=== PATIENT | female | born 1950 | race Two or more races ===

== ENCOUNTER → 2019-02-24 | Outpatient (CLI) | payer OTHER, MEDICARE, MEDICAID ==
--- NOTE | 2019-02-24 13:03 | RADIOLOGY REPORT (SQ) ---
EXAM DESCRIPTION: CHEST PA/LATERAL COMPLETED DATE/TIME: 02/24/2019 11:41 am REASON FOR STUDY: WHEEZING COMPARISON: None. EXAM PARAMETERS: NUMBER OF VIEWS: two views TECHNIQUE: Digital Frontal and Lateral radiographic views of the chest acquired. RADIATION DOSE: NA LIMITATIONS: none FINDINGS: LUNGS AND PLEURA: No opacities, masses or pneumothorax. No pleural effusion. MEDIASTINUM AND HILAR STRUCTURES: No masses or contour abnormalities. HEART AND VASCULAR STRUCTURES: The heart size is borderline. There is no pulmonary edema. BONES: No acute findings. HARDWARE: None in the chest. OTHER: No other significant finding. IMPRESSION: Borderline cardiomegaly without pulmonary edema. TECHNICAL DOCUMENTATION: JOB ID: [id number] [employer]- All Rights Reserved Reading location - IP/workstation name: [email or web address]
== END ==
LOC: RAD 11:19
PROVIDERS: ATTEND Physician Assistant
DX: I51.7 Cardiomegaly (principal); R06.2 Wheezing
CPT/HCPCS: 71046

== ENCOUNTER → 2019-06-05 | Outpatient (CLI) | payer MEDICARE, MEDICAID ==
[2019-06-05 13:20] LABS: ABSOLUTE EOSINOPHILS # (AUTO) 0.2 10^3/uL (0.0-0.6); ABSOLUTE LYMPHOCYTES (AUTO) 1.9 10^3/uL (0.5-4.7); ABSOLUTE MONOCYTES (AUTO) 0.3 10^3/uL (0.1-1.4); ABSOLUTE NEUT (AUTO) 3.7 10^3/uL (1.7-8.2); BASOPHILS % (AUTO) 0.5 % (0-2); EOSINOPHILS % (AUTO) 3.5 % (0-6); HEMATOCRIT 37.9 % (36.0-47.0); HEMOGLOBIN 13.1 g/dL (12.0-15.5); LYMPHOCYTES % (AUTO) 31.3 % (13-45); MEAN CORPUSCULAR HEMOGLOBIN 29.1 pg (27.0-33.4); MEAN CORPUSCULAR HGB CONC 34.5 g/dL (32.0-36.0); MEAN CORPUSCULAR VOLUME 84 fl (80-97); MONOCYTES % (AUTO) 5.6 % (3-13); PLATELET COUNT 200 10^3/uL (150-450); RED BLOOD COUNT 4.49 10^6/uL (3.72-5.28); RED CELL DISTRIBUTION WIDTH 13.9 % (11.5-14.0); SEGMENTED NEUTROPHILS % (AUTO) 59.1 % (42-78); TOTAL CELLS COUNTED % (AUTO) 100 %; WHITE BLOOD COUNT 6.2 10^3/uL (4.0-10.5)
[2019-06-05 13:45] LABS: ALBUMIN 4.8 g/dL (3.5-5.0); ALKALINE PHOSPHATASE 57 U/L (38-126); ANION GAP 10 (5-19); ASPARTATE AMINO TRANSFERASE 24 U/L (14-36); BILIRUBIN,TOTAL 0.5 mg/dL (0.2-1.3); BLOOD UREA NITROGEN 41 mg/dL (7-20); CALCIUM 9.5 mg/dL (8.4-10.2); CARBON DIOXIDE 22 mmol/L (22-30); CHLORIDE 105 mmol/L (98-107); CHOLESTEROL 209.97 mg/dL (0-200); GLUCOSE 144 mg/dL (75-110); POTASSIUM 4.4 mmol/L (3.6-5.0); TOTAL PROTEIN 7.7 g/dL (6.3-8.2); TRIGLYCERIDES 511 mg/dL (<150)
[2019-06-05 13:56] LABS: DIRECT LDL 117 mg/dL (<100)
== END ==
LOC: OD 12:13
PROVIDERS: ATTEND Physician Assistant
DX: E11.9 Type 2 diabetes mellitus without complications (principal); E78.2 Mixed hyperlipidemia
CPT/HCPCS: 36415; 80053; 80061; 83036; 85025

== ENCOUNTER → 2019-10-14 | Outpatient (CLI) | payer MEDICARE, MEDICAID ==
--- NOTE | 2019-10-14 12:12 | RADIOLOGY REPORT (SQ) ---
EXAM DESCRIPTION: U/S RETROPERITON (RENAL/AORTA) IMAGES COMPLETED DATE/TIME: 10/14/2019 12:01 pm REASON FOR STUDY: CKD I (N18.1) N18.1 CHRONIC KIDNEY DISEASE, STAGE 1 COMPARISON: None. TECHNIQUE: Dynamic and static grayscale images acquired of the kidneys and bladder and recorded on P ACS. Additional selected color Doppler and spectral images recorded. LIMITATIONS: None. FINDINGS: RIGHT KIDNEY: The right kidney measures 8.8 cm in length. Normal echogenicity. No flaco id or suspicious masses. No hydronephrosis. No calcifications. LEFT KIDNEY: The left kidney measures 10.4 cm in length. Normal echogenicity. There is a 1.6 x 1 .8 x 1.2 cm cyst in the upper pole. There is mild dilatation of the left renal pelvis. Mild calyx dilatation. No calcifications. BLADDER: No masses. OTHER FINDINGS: No other significant finding. IMPRESSION: Mild left-sided hydronephrosis. TECHNICAL DOCUMENTATION: JOB ID: [id number] [employer]- All Rights Reserved Reading location - IP/workstation name: [email or web address]
== END ==
LOC: RAD 11:11
PROVIDERS: ATTEND Physician Assistant
DX: N18.1 Chronic kidney disease, stage 1 (principal); N13.30 Unspecified hydronephrosis
CPT/HCPCS: 76770

== ENCOUNTER 2020-02-28 13:41 | Emergency (ER) | payer MEDICARE, MEDICAID ==
--- NOTE | 2020-02-28 15:56 | ER Document Report ---
ED Medical Screen (RME) - General Chief Complaint: High Blood Sugar Stated Complaint: BLOOD SUGAR ISSUES Time Seen by Provider: 02/28/20 15:48 Primary Care Provider: SERGIO BARROS PA [Primary Care Provider] - Follow up as needed TRAVEL OUTSIDE OF THE [place] IN LAST 30 DAYS: No - HPI Notes: Patient is a 69-year-old female with medical history of insulin-dependent DM, renal insufficiency, and HTN who presents with hyperglycemia for the past 2 days. Patient states her most recent blood sugar was 414 this morning. Patient has been compliant with her medications and insulin. She reports fatigue, polyuria, polydipsia, and shakiness. She denies vomiting, and abdominal pain. Physical Exam - Vital signs Vitals: Temp Pulse Resp BP Pulse Ox 97.5 F 55 L 22 H 154/61 H 97 02/28/20 13:56 02/28/20 13:56 02/28/20 13:56 02/28/20 13:56 02/28/20 13:56 - Respiratory Respiratory status: No respiratory distress Breath sounds: Normal - Cardiovascular Rhythm: Regular Heart sounds: Normal auscultation - Abdominal Tenderness: Nontender Course - Re-evaluation Re-evalutation: I have greeted and performed a rapid initial assessment of this patient. A comprehensive ED assessment and evaluation of the patient, analysis of test results and completion of medical decision making process will be conducted by an additional ED providers. - Vital Signs Vital signs: Temp Pulse Resp BP Pulse Ox 97.5 F 55 L 22 H 154/61 H 97 02/28/20 13:56 02/28/20 13:56 02/28/20 13:56 02/28/20 13:56 02/28/20 13:56 Doctor's Discharge - Discharge Referrals: SERGIO BARROS PA [Primary Care Provider] - Follow up as needed
[2020-02-28 16:24] LABS: APPEARANCE,URINE CLEAR; BILIRUBIN,URINE NEGATIVE (NEGATIVE); COLOR,URINE YELLOW; GLUCOSE, URINE 50 mg/dL (NEGATIVE); KETONES,URINE NEGATIVE (NEGATIVE); LEUKOCYTE ESTERASE,URINE SMALL (NEGATIVE); NITRITE,URINE NEGATIVE (NEGATIVE); PROTEIN,URINE 30 mg/dL (NEGATIVE); URINE SPECIFIC GRAVITY 1.019; UROBILINOGEN,URINE NEGATIVE mg/dL (<2.0)
[2020-02-28 16:32] LABS: ABSOLUTE EOSINOPHILS # (AUTO) 0.1 10^3/uL (0.0-0.6); ABSOLUTE LYMPHOCYTES (AUTO) 1.5 10^3/uL (0.5-4.7); ABSOLUTE MONOCYTES (AUTO) 0.3 10^3/uL (0.1-1.4); BASOPHILS % (AUTO) 0.6 % (0-2); EOSINOPHILS % (AUTO) 1.5 % (0-6); HEMATOCRIT 38.7 % (36.0-47.0); HEMOGLOBIN 12.9 g/dL (12.0-15.5); LYMPHOCYTES % (AUTO) 24.8 % (13-45); MEAN CORPUSCULAR HEMOGLOBIN 25.1 pg (27.0-33.4); MEAN CORPUSCULAR HGB CONC 33.3 g/dL (32.0-36.0); MEAN CORPUSCULAR VOLUME 75 fl (80-97); MONOCYTES % (AUTO) 5.1 % (3-13); PLATELET COUNT 187 10^3/uL (150-450); RED BLOOD COUNT 5.14 10^6/uL (3.72-5.28); RED CELL DISTRIBUTION WIDTH 15.6 % (11.5-14.0); TOTAL CELLS COUNTED % (AUTO) 100 %; WHITE BLOOD COUNT 5.9 10^3/uL (4.0-10.5)
[2020-02-28 16:37] LABS: ALBUMIN 4.5 g/dL (3.5-5.0); ALKALINE PHOSPHATASE 84 U/L (38-126); ANION GAP 5 (5-19); ASPARTATE AMINO TRANSFERASE 21 U/L (14-36); BILIRUBIN,DIRECT 0.2 mg/dL (0.0-0.4); BILIRUBIN,TOTAL 0.4 mg/dL (0.2-1.3); BLOOD UREA NITROGEN 25 mg/dL (7-20); CALCIUM 9.5 mg/dL (8.4-10.2); CARBON DIOXIDE 30 mmol/L (22-30); CHLORIDE 98 mmol/L (98-107); GLUCOSE 273 mg/dL (75-110); POTASSIUM 4.3 mmol/L (3.6-5.0); TOTAL PROTEIN 7.2 g/dL (6.3-8.2)
[2020-02-28] MEDS ORDERED: NORMAL SALINE 1000 ML 1,000 ML IV ONE (17:42)
[2020-02-28] MEDS ORDERED: CEFTRIAXONE 1 GM/D5W RTU 1 GM/50 ML RTUPB IV ONE (17:42)
--- NOTE | 2020-02-28 18:03 | ER Document Report ---
ED General - General Chief Complaint: High Blood Sugar Stated Complaint: BLOOD SUGAR ISSUES Time Seen by Provider: 02/28/20 15:48 Primary Care Provider: SERGIO BARROS PA [Primary Care Provider] - Follow up as needed Notes: HPI: 69-year-old female who presents today stating she has had some erratic blood sugars slightly elevated above baseline for the last 3 days. No fevers, vomiting, or diarrhea. Some increased urinary frequency without dysuria. No abdominal or pelvic pain. No change in her insulin regimen. ROS: See HPI All other review of systems reviewed and otherwise negative Reviewed vital signs and nursing note as charted by RN. PHYSICAL EXAM: CONSTITUTIONAL: Alert and oriented and responds appropriately to questions. Well-appearing; well-nourished HEAD: Normocephalic; atraumatic EYES: PERRL; Conjunctivae clear, sclerae non-icteric ENT: Normal nose; no rhinorrhea; moist mucous membranes; pharynx without lesions noted CARD: Regular rate and rhythm; no murmurs; symmetric distal pulses RESP: Normal chest excursion without splinting or tachypnea; breath sounds clear and equal bilaterally ABD/GI: Normal bowel sounds; non-distended; soft, non-tender to deep palpation of all 4 quadrants of the abdomen BACK: The back appears normal and is non-tender to palpation EXT: Normal ROM in all joints; non-tender to palpation; no edema SKIN: No acute lesions noted NEURO: CN 2-12 intact; 5/5 bilateral upper and lower extremity strength with sensation intact to light touch PSYCH: The patient's mood and manner are appropriate. Grooming and personal hygiene are appropriate. TRAVEL OUTSIDE OF THE [place] IN LAST 30 DAYS: No Past Medical History - Social History Smoking Status: Unknown if Ever Smoked Family History: Reviewed & Not Pertinent Physical Exam - Vital signs Vitals: Temp Pulse Resp BP Pulse Ox 97.5 F 55 L 22 H 154/61 H 97 02/28/20 13:56 02/28/20 13:56 02/28/20 13:56 02/28/20 13:56 02/28/20 13:56 Course - Re-evaluation Re-evalutation: Given the above history and physical, basic labs including a urine analysis, chemistry, and anion gap will be ordered. We would like to assess for the possibility of extreme hyperglycemia, diabetic ketoacidosis, or infection. 02/28/20 18:01 Labs and urine analysis as recorded. We have added a urine culture. We have added a liter of fluid as well as a dose of Rocephin. Patient still has no pain. No signs or symptoms of diabetic ketoacidosis. Patient will be discharged home with strict return precautions and follow-up with the primary doctor. - Vital Signs Vital signs: Temp Pulse Resp BP Pulse Ox 97.5 F 55 L 22 H 154/61 H 97 02/28/20 13:56 02/28/20 13:56 02/28/20 13:56 02/28/20 13:56 02/28/20 13:56 - Laboratory Results Result Diagrams: 02/28/20 16:05 02/28/20 16:05 Laboratory Results Interpreted: 02/28/20 02/28/20 02/28/20 15:59 16:05 16:05 MCV 75 L MCH 25.1 L RDW 15.6 H Sodium 133.2 L BUN 25 H Est GFR ( Amer) 57 L Est GFR (MDRD) Non-Af 47 L Glucose 273 H POC Glucose 258 H Urine Protein Urine Glucose (UA) Ur Leukocyte Esterase 02/28/20 16:08 MCV MCH RDW Sodium BUN Est GFR ( Amer) Est GFR (MDRD) Non-Af Glucose POC Glucose Urine Protein 30 H Urine Glucose (UA) 50 H Ur Leukocyte Esterase SMALL H Critical Laboratory Results Reviewed: No Critical Results - Radiology Results Critical Radiology Results Reviewed: No Critical Results Discharge - Discharge Clinical Impression: Hyperglycemia UTI (urinary tract infection) Qualifiers: Urinary tract infection type: site unspecified Hematuria presence: without hematuria Qualified Code(s): N39.0 - Urinary tract infection, site not specified Condition: Good Disposition: HOME, SELF-CARE Additional Instructions: Come back immediately for any increased blood glucose levels, fever, vomiting, inability urinate, or any other acute problems. Please make sure that you check your glucose frequently, take your insulin as directed, take the antibiotics as prescribed, and follow-up with your primary care physician regarding the urine culture as discussed. Prescriptions: Cephalexin Monohydrate [Keflex 500 mg Capsule] 500 mg PO Q8H 7 Days #21 capsule Referrals: SERGIO BARROS PA [Primary Care Provider] - Follow up as needed
[2020-02-28 20:03] VITALS: BP 154/65
== END 2020-02-28 20:07 | disposition home or self-care (01) ==
LOC: ER 13:41
DX: E11.65 Type 2 diabetes mellitus with hyperglycemia (principal); N39.0 Urinary tract infection, site not specified; I10 Essential (primary) hypertension; Z79.4 Long term (current) use of insulin
CPT/HCPCS: 99284; 96365; 36415; 87086; 82962; 85025; 87088; 80053; 81001; 87186; J7030; J0696